=== PATIENT | female | born 1970 | race Caucasian/White ===

== ENCOUNTER 2020-10-16 08:14 | Outpatient (CLI) | payer BC, SELFPAY ==
--- NOTE | ~2020-10-16 | MM_ITS ---
EXAMINATION: MM screening paula BI w loan HISTORY: Screening mammogram TECHNIQUE: Craniocaudal and mediolateral oblique 3-D tomosynthesis images were obtained and synthetic 2-D images were generated. CAD analysis was submitted and interpreted. COMPARISON: 10/04/2019 bilateral digital screening mammogram 10/01/2018 right screening and left diagnostic digital mammogram and limited left breast ultrasound 04/27/2018, since 10/21/2017 diagnostic left digital mammogram 09/22/2017, 09/18/2016 bilateral digital screening mammogram examinations BREAST PARENCHYMAL COMPOSITION: There are scattered areas of fibroglandular density. FINDINGS: A biopsy marker is again noted in the upper outer quadrant left breast; history of prior be nign left breast biopsy. There is no evidence of suspicious mass, calcification, or architectural dis tortion to suggest malignancy in either breast. There has been no suspicious interval change. IMPRESSION: 1. No mammographic evidence of malignancy. 2. Recommend routine screening mammography in one year. BI-RADS Category 1: Negative Reviewed, dictated and finalized at location A. DING EQUIPMENT OPERATOR
== END 2020-10-16 08:15 | disposition home or self-care (01) ==
LOC: ANHIMG 08:16
PROVIDERS: PCP Family Medicine; Visit Provider Obstetrics & Gynecology
DX: Z12.31 Encounter for screening mammogram for malignant neoplasm of breast (principal)
CPT/HCPCS: 77063; 77067

== ENCOUNTER 2021-04-24 07:10 | Outpatient (CLI) | payer BC, SELFPAY ==
[2021-04-24 08:17] LABS: Basophils Absolute Auto 0.1 K/mm3 (0.0-0.1); Basophils Percent Auto 0.4 % (0.2-1.2); Eosinophils Absolute Auto 0.2 K/mm3 (0-0.3); Eosinophils Percent Auto 1.9 % (0-4.4); Hematocrit 42.9 % (37.0-47.0); Hemoglobin 13.5 g/dL (12.0-15.0); Immature Granulocyte Absolute 0.05 K/mm3 (0.00-0.031); Immature Granulocyte Percent A 0.4 % (0-0.5); Lymphocytes Absolute Auto 2.77 K/mm3 (0.9-3.2); Lymphocytes Percent Auto 23.3 % (18.3-44.2); Mean Corpuscular HGB Conc 31.5 g/dl (32-36); Mean Corpuscular Hemoglobin 26.7 pg (26-34); Mean Corpuscular Volume 84.8 fl (80-100); Mean Platelet Volume 9.9 fl (7.4-10.4); Monocytes Absolute Auto 0.9 K/mm3 (0.1-0.6); Monocytes Percent Auto 7.3 % (2.6-8.5); Neutrophils Absolute Auto 7.9 K/mm3 (1.3-6.7); Neutrophils Percent Auto 66.7 % (45.5-73.1); Platelet Count Result 355 k/mm3 (150-375); Red Blood Count 5.06 M/mm3 (4.2-5.4); Red Cell Distribution Width 14.2 % (11.5-14.5); White Blood Count 11.9 K/mm3 (4.5-10.0)
[2021-04-24 08:26] LABS: Alanine Aminotransferase 80 U/L (4-35); Alkaline Phosphatase 60 U/L (38-126); Anion Gap 9 mmol/L (8-16); Aspartate Amino Transferase 41 U/L (14-36); Bilirubin,Total 0.4 mg/dL (0.2-1.3); Blood Urea Nitrogen 11 mg/dL (7-17); Calcium 8.7 mg/dL (8.4-10.2); Carbon Dioxide 23 mmol/L (22-30); Chloride 108 mmol/L (98-107); Cholesterol 115 mg/dL (0-200); Estimated Glomerular Filt Rate > 60; Glucose 104 mg/dL (65-105); HDL Direct 45 mg/dL; Potassium 3.9 mmol/L (3.4-5.0); Sodium 140 mmol/L (137-145); Triglycerides 90 mg/dL (<150)
[2021-04-24 08:34] LABS: Add Urine Microscopic? YES; Appearance Urine Cloudy (Clear); Bilirubin Urine Negative (Negative); Blood Urine 1+ (Negative); Color Urine Yellow (Yellow); Glucose Urine UA Negative (Negative); Ketones Urine Negative (Negative); Leukocyte Esterase Ur 1+ LEU/UL (NEGATIVE); Mucus Urine Moderate /lpf; Nitrate Urine Negative (Negative); Protein Urine Negative (Negative); RBC Urine 0-2 /hpf (0-2); Specific Grav Ur 1.023 (1.001-1.035); Squamous Epithelial Cell Urine Many /hpf (Few); Urobilinogen Urine Negative mg/dL (<2.0)
[2021-04-24 08:37] LABS: LDL Cholesterol Direct 54 mg/dL
[2021-04-24 09:20] LABS: Hemoglobin A1C 6.1 % (<5.7)
== END 2021-04-24 07:11 | disposition home or self-care (01) ==
PROVIDERS: PCP Family Medicine; Visit Provider Physician Assistant
DX: Z00.00 Encounter for general adult medical examination without abnormal findings (principal); R74.8 Abnormal levels of other serum enzymes; I10 Essential (primary) hypertension; K76.0 Fatty (change of) liver, not elsewhere classified; R73.01 Impaired fasting glucose; E28.2 Polycystic ovarian syndrome
CPT/HCPCS: 36415; 80053; 80061; 81001; 83036; 84443; 85025

== ENCOUNTER 2021-11-08 15:38 | Outpatient (CLI) | payer OTHER, SELFPAY ==
--- NOTE | ~2021-11-08 | MM_ITS ---
EXAMINATION: MM screening paula BI w loan HISTORY: Screening TECHNIQUE: Craniocaudal and mediolateral oblique 3-D tomosynthesis images were obtained and synthetic 2-D images were generated. CAD analysis was submitted and interpreted. COMPARISON: Comparison to multiple prior studies sequentially, with oldest reviewed study dated 09/27. BREAST PARENCHYMAL COMPOSITION: Breast composed of scattered areas of fibroglandular density FINDINGS: There are developing bilateral breast asymmetries in the upper outer quadrants of both jacob sts. There are stable benign left breast calcifications. IMPRESSION: 1. Developing bilateral breast asymmetries. 2. Additional mammographic views and possible breast ultrasound are recommended. BI-RADS Category 0: Incomplete: Needs additional imaging evaluation. Reviewed, dictated and finalized at location A. RETE GUN OPERATOR IMPRESSION: 1. Developing bilateral breast asymmetries. 2. Additional mammographic views and possible breast ultrasound are recommended . BI-RADS Category 0: Incomplete: Needs additional imaging evaluation.
== END 2021-11-08 15:39 | disposition home or self-care (01) ==
LOC: ANHIMG 15:42
PROVIDERS: PCP Family Medicine; Visit Provider Obstetrics & Gynecology
DX: Z12.31 Encounter for screening mammogram for malignant neoplasm of breast (principal); R92.8 Other abnormal and inconclusive findings on diagnostic imaging of breast
CPT/HCPCS: 77063; 77067

== ENCOUNTER 2021-11-26 13:41 | Outpatient (CLI) | payer OTHER, SELFPAY ==
--- NOTE | ~2021-11-26 | MMUS_ITS ---
EXAMINATION: MM diagnostic paula BI w loan, US breast BI limited HISTORY: Bilateral breast asymmetries TECHNIQUE: Additional 3-D tomosynthesis images of the breasts were performed and synthetic 2-D images were generated. CAD analysis was submitted and interpreted. High resolution limited bilateral breast ultrasound was performed. COMPARISON: Comparison to multiple prior studies sequentially, with oldest reviewed study dated 11/2017. BREAST PARENCHYMAL COMPOSITION: Breast composed of scattered areas of fibroglandular density FINDINGS: MAMMOGRAPHIC FINDINGS: Bilateral asymmetries in the outer aspect of both breasts are less dense with spot compression views. There are no suspicious calcifications or architectural distortion. ULTRASOUND: Limited right breast ultrasound: There are multiple bilateral cysts and mildly prominent ducts in bot h breasts. No suspicious masses to suggest malignancy. IMPRESSION: 1. No evidence for malignancy in either breast. Benign findings. 2. Routine yearly screening mammogram and regular clinical breast examination are recommended. BI-RADS Category 2: Benign finding(s). Reviewed, dictated and finalized at location A. SETTER IMPRESSION: 1. No evidence for malignancy in either breast. Benign findings. 2. Routine yearly screening mammogram and regular clinical breast examination a re recommended. BI-RADS Category 2: Benign finding(s).
== END 2021-11-26 13:42 | disposition home or self-care (01) ==
LOC: ANHIMG 13:42
PROVIDERS: PCP Family Medicine; Visit Provider Obstetrics & Gynecology
DX: R92.8 Other abnormal and inconclusive findings on diagnostic imaging of breast (principal)
CPT/HCPCS: 76642; 77062; 77066; G0279

== ENCOUNTER 2023-01-30 09:39 | Outpatient (CLI) | payer OTHER, SELFPAY ==
--- NOTE | ~2023-01-30 | MM_ITS ---
EXAMINATION: MM screening paula BI w loan HISTORY: Screening TECHNIQUE: Craniocaudal and mediolateral oblique 3-D tomosynthesis images were obtained and synthetic 2-D images were generated. CAD analysis was submitted and interpreted. COMPARISON: Comparison to multiple prior studies sequentially, with oldest reviewed study dated 03/2018. BREAST PARENCHYMAL COMPOSITION: There are scattered areas of fibroglandular density. FINDINGS: There is a new focal asymmetry in the outer aspect of the right breast on CC view. The left breast is stable without evidence for malignancy. IMPRESSION: 1. New right breast asymmetry. 2. Additional mammographic views and possible breast ultrasound are recommended. BI-RADS Category 0: Incomplete: Needs additional imaging evaluation. Reviewed, dictated and finalized at location A. IMPRESSION: 1. New right breast asymmetry. 2. Additional mammographic views and possible breast ultrasound are recommended . BI-RADS Category 0: Incomplete: Needs additional imaging evaluation.
== END 2023-01-30 09:40 | disposition home or self-care (01) ==
LOC: ANHIMG 09:40
PROVIDERS: PCP Family Medicine; Visit Provider Obstetrics & Gynecology
DX: Z12.31 Encounter for screening mammogram for malignant neoplasm of breast (principal); R92.8 Other abnormal and inconclusive findings on diagnostic imaging of breast
CPT/HCPCS: 77063; 77067

== ENCOUNTER 2023-03-20 12:39 | Outpatient (CLI) | payer OTHER, SELFPAY ==
--- NOTE | ~2023-03-20 | MM_ITS ---
EXAMINATION: MM diagnostic paula RT w loan HISTORY: Right breast asymmetry on screening mammogram TECHNIQUE: Additional 3-D tomosynthesis images of the right breast were performed and synthetic 2-D i mages were generated. CAD analysis was submitted and interpreted. COMPARISON: 01/30/2023, 11/26/2021, 11/08/2021, 10/16/2020 FINDINGS: An asymmetry is present in the subareolar aspect of the right breast. There is a return to baseline fibroglandular appearance with spot compression of the right breast in the area questioned o n screening mammogram. No suspicious calcification or architectural distortion are identified. IMPRESSION: 1. Subareolar asymmetry of the right breast. Patient did not wish to undergo ultrasound at this time. 2. Further evaluation with limited right breast ultrasound is recommended. BI-RADS Category 0: Incomplete: Needs additional imaging evaluation. Reviewed, dictated and finalized at location A. IMPRESSION: 1. Subareolar asymmetry of the right breast. Patient did not wish to undergo ul trasound at this time. 2. Further evaluation with limited right breast ultrasound is recommended. BI-RADS Category 0: Incomplete: Needs additional imaging evaluation.
== END 2023-03-20 12:40 | disposition home or self-care (01) ==
PROVIDERS: PCP Family Medicine; Visit Provider Obstetrics & Gynecology
DX: R92.8 Other abnormal and inconclusive findings on diagnostic imaging of breast (principal)
CPT/HCPCS: 77061; 77065; G0279

== ENCOUNTER 2023-04-04 10:16 | Outpatient (CLI) | payer OTHER, SELFPAY ==
--- NOTE | ~2023-04-04 | US_ITS ---
US breast RT limited 04/04/2023 10:40 Indication: Follow-up right breast asymmetry Procedure: Limited right breast ultrasound Comparison: Comparison to multiple prior studies sequentially, with oldest reviewed study dated 11/26. Findings: At 10:00, 5 cm from the nipple, there is a 3 mm cyst. At 8:00, 1 cm from the nipple, there is an oval circumscribed hypoechoic mass with low level internal echoes and a single punctate echogen ic foci, most likely benign. There is parallel orientation, circumscribed margins, no posterior acous tic shadowing and no internal vascularity. Impression: 1: Probable benign right breast mass at 8:00, 1 cm from the nipple. BI-RADS CATEGORY 3-PROBABLY BENIGN FINDING RECOMMENDATION: 6 month follow-up Limited right breast ultrasound recommended. Reviewed, dictated and finalized at location A. Impression: 1: Probable benign right breast mass at 8:00, 1 cm from the nipple. BI-RADS CATEGORY 3-PROBABLY BENIGN FINDING RECOMMENDATION: 6 month follow-up Limited right breast ultrasound recommended.
== END 2023-04-04 10:17 | disposition home or self-care (01) ==
PROVIDERS: PCP Family Medicine; Visit Provider Obstetrics & Gynecology
DX: R92.8 Other abnormal and inconclusive findings on diagnostic imaging of breast (principal)
CPT/HCPCS: 76642

== ENCOUNTER 2024-05-05 07:43 | Day surgery (SDC) | payer OTHER, SELFPAY ==
[2024-03-25 13:53] VITALS: BMI 31.5
--- NOTE | 2024-05-04 13:49 | WPDANESEPPF ---
Anes - Initial Pre Proc Eval Procedure: Operation Date: 05/05/24 10:30 Proposed Procedures p Screening Colonoscopy - Inder Estrada MD Date/Time: 05/04/24 13:49 Surgeon: Idner Estrada MD Pre Op Diagnosis: Neoplasm Screening Patient Data Age: 53 Gender: F Height: 1.55 m Weight: 85 kg Allergies Allergy/AdvReac Type Severity Reaction Status Date / Time Penicillins Allergy Unknown Anaphylactic Verified 05/05/24 09:26 Shock Home Medications Medication Instructions Recorded Confirmed Type calcium carbonate 500 mg PO DAILY #30 caps 03/01/20 05/05/24 Rx cholecalciferol (vitamin D3) 125 125 mcg PO DAILY #30 caps 03/01/20 05/05/24 Rx mcg (5,000 unit) capsule loratadine 10 mg tablet (Claritin) 10 mg PO DAILY PRN allergic 06/12/23 05/05/24 Rx symptoms #90 tabs spironolactone 100 mg tablet 50 mg PO BID #90 tabs 04/02/24 05/05/24 Rx metformin 850 mg tablet 850 mg PO BID #180 tabs 04/28/24 Rx Patient hx anesthesia problems: none Family hx anesthesia problems: none Results Review: All pre-operative results and documents have been reviewed as part of the pre-operative evaluation. [facility] Past Medical History Medical History (Updated 05/05/24 @ 09:47 by Inder Estrada MD) Chronic GERD Crepitus of joint of right knee Elevated liver enzymes Wellness examination Family History Family History Mother Patient's mother is in good health Hypertension Family history of cardiovascular disease Cerebrovascular accident Sibling Patient's sister is in good health Family history of malignant neoplasm of breast in first degree relative Social History Social History Smoking status: Never smoker Second hand tobacco smoke exposure: No Alcohol intake: current Drinks per week: 7 Substance use: never Substance use type: does not use Living arrangements: with family Occupation/Education: occupation Gender identity (if verbalized by the patient): Female Anes - Eval Final PreProcedure Day of Procedure 05/04/24 13:49 Patient weight: overweight Heart: regular rate and rhythm Lungs: clear to auscultation Airway: Mallampati scale class II Neurological: alert and oriented Last oral intake: >/= 8 hours ASA classification: II Emergent: no Anesthetic plan: proceed Anesthesia type and monitoring: general GIVS and standard monitoring Results Review: All pre-operative results and documents have been reviewed as part of the pre-operative evaluation. Informed Consent: The patient's anesthetic plan and its attendant risks and benefits were discussed with the patient/family/POA. Questions were solicited and answers provided to the satisfaction of the patient/family/POA.
[2024-05-05 09:34] VITALS: BP 130/89; PULSE 94; RESP 18; TEMP 37.7; O2SAT 98; BMI 46.7
--- NOTE | 2024-05-05 09:46 | PM.HPGS ---
History of Present Illness History of Present Illness Consent: Risks, benefits, and alternatives have been discussed and questions answered. Patient agrees to proceed with procedure. Chief complaint: Neoplasm Screening Narrative: Brittany Roman is a 53 year old female presents for screening colonoscopy. Patient's current weight appetite is are normal. She denies abdominal pain. Patient has had no bleeding. Family history noncontributory. Review of Systems Review of Systems: All systems reviewed & are unremarkable except as noted in HPI and below PMFSH Past Medical History Medical History (Updated 05/05/24 @ 09:47 by Inder Estrada MD) Chronic GERD Crepitus of joint of right knee Elevated liver enzymes Wellness examination Family History Family History Mother Patient's mother is in good health Hypertension Family history of cardiovascular disease Cerebrovascular accident Sibling Patient's sister is in good health Family history of malignant neoplasm of breast in first degree relative Social History Social History Smoking status: Never smoker Second hand tobacco smoke exposure: No Alcohol intake: current Drinks per week: 7 Substance use: never Substance use type: does not use Living arrangements: with family Occupation/Education: occupation Gender identity (if verbalized by the patient): Female Meds Home Medications and Allergies Home Medications Medication Instructions Recorded Confirmed Type calcium carbonate 500 mg PO DAILY #30 caps 03/01/20 05/05/24 Rx cholecalciferol (vitamin D3) 125 125 mcg PO DAILY #30 caps 03/01/20 05/05/24 Rx mcg (5,000 unit) capsule loratadine 10 mg tablet (Claritin) 10 mg PO DAILY PRN allergic 06/12/23 05/05/24 Rx symptoms #90 tabs spironolactone 100 mg tablet 50 mg PO BID #90 tabs 04/02/24 05/05/24 Rx metformin 850 mg tablet 850 mg PO BID #180 tabs 04/28/24 Rx Allergies Allergy/AdvReac Type Severity Reaction Status Date / Time Penicillins Allergy Unknown Anaphylactic Verified 05/05/24 09:26 Shock Vital Signs Vital Signs - 24 hr 05/05/24 09:34 Temperature 99.9 F H Pulse Rate 94 Respiratory Rate 18 Blood Pressure 130/89 Pulse Oximetry 98 Oxygen Delivery Room Air Exam Narrative: Physical exam reveals patient to be alert. Vital signs stable. HEENT exam is unremarkable. Patient is anicteric. Is are clear to auscultation and to percussion P is without murmur or extra sounds. Abdomen sounds are present soft nontender with no organomegaly. Digital external rectal exam normal. Assessment and Plan Assessment and plan (1) Screen for colon cancer: Code(s): Z12.11 - Encounter for screening for malignant neoplasm of colon Status: Acute Assessment and Plan: Presents today for neoplasia screening colonoscopy. Further recommendations may be given after endoscopy.
[2024-05-05 09:59] LABS: Glucose Point of Care 108 mg/dl (65-105)
[2024-05-05] MEDS: LACTATED RINGERS 1,000 ML 150 ML IV CONT (10:03)
[2024-05-05 10:30] VITALS: BMI 32.6
[2024-05-05 10:40] VITALS: BP 96/64; PULSE 77; RESP 15; O2SAT 97
[2024-05-05 10:50] VITALS: BP 102/80; PULSE 78; RESP 16; O2SAT 99
[2024-05-05 11:00] VITALS: BP 107/67; PULSE 68; RESP 16; O2SAT 100
--- NOTE | 2024-05-05 15:06 | WPDANESPN ---
Anes - Prog Note Post-Op Date/Time: 05/05/24 15:06 Cardiovascular status: normal Respiratory status: normal Airway patency: baseline Mental status: baseline Post-Op hydration status: normal Vital Signs: Last Vital Signs Temp 37.7 C H 05/05/24 09:34 Pulse 68 05/05/24 11:00 Resp 16 05/05/24 11:00 BP 107/67 05/05/24 11:00 Pulse Ox 100 05/05/24 11:00 O2 Del Method Room Air 05/05/24 11:00 Pain Score (VAS): 0 I/O: Intake & Output 05/04/24 05/05/24 05/05/24 23:59 07:59 15:59 Intake Total 600 Balance 600 05/05/24 09:54 POC Capillary Glucose 108 H Post-procedural complaints: none Patient Feedback: Patient satisfied with anesthetic care. Other Findings: Patient vital signs back to baseline. Patient denies nausea and vomiting. Patient's pain under control. Patient OK for discharge.
== END 2024-05-05 11:08 | disposition home or self-care (01) ==
PROVIDERS: PCP Family Medicine; Visit Provider Internal Medicine Gastroenterology
PROC: 0DJD8ZZ Inspection of Lower Intestinal Tract, Via Natural or Artificial Opening Endoscopic (ICD-10-PCS; CPT 45378; principal; 2024-05-05 10:30)
DX: Z12.11 Encounter for screening for malignant neoplasm of colon (principal)
CPT/HCPCS: 45378

== ENCOUNTER 2024-10-22 10:07 | Outpatient (CLI) | payer OTHER, SELFPAY ==
--- NOTE | ~2024-10-22 | MMUS_ITS ---
EXAMINATION: MM diagnostic paula BI w loan, US breast RT limited HISTORY: Prior asymmetry described on 01/30/2023. Patient presents for follow-up. TECHNIQUE: 3-D tomosynthesis images of bilateral breasts were performed in both the CC and MLO positi ons and synthetic 2-D images were generated. CAD analysis was submitted and interpreted. High resolut ion limited right breast ultrasound was performed. COMPARISON: 04/04/2023 and dating 10/04/2019 BREAST PARENCHYMAL COMPOSITION:Not Dense. There are scattered areas of fibroglandular density. FINDINGS: MAMMOGRAPHIC FINDINGS: Punctate calcifications detected bilaterally, stable and benign in appearance. Microclip within the left breast, consistent with patient's history. No discrete masses, architectural distortion, suspicious microcalcifications or significant asymmetry . ULTRASOUND: At the 8:00 position of the right breast approximately 1 cm from the nipple is a well-circumscribed a nechoic avascular focus measuring 3.6 x 1.9 x 2.7 mm, consistent with a simple cyst for which no furt her follow-up is needed. At the 10:00 position of the right breast approximately 5 cm from the nipple is a well-circumscribed focus of decreased echogenicity measuring 3.5 x 2.3 x 2.7 mm, sonographically consistent with an intr amammary lymph node for which no further follow-up is needed. Sonographic evaluation of the remainder of the right breast demonstrates benign fibroglandular elemen ts without a cystic or solid lesion of concern. IMPRESSION: No mammographic/tomographic or sonographic evidence to suggest the presence of malignancy. BI-RADS Category 2: Benign findings. Resumption of yearly mammography is recommended. Reviewed, dictated and finalized at location A. E AND WEIGH MACHINE ADJUSTER IMPRESSION: No mammographic/tomographic or sonographic evidence to suggest the presence of malignancy. BI-RADS Category 2: Benign findings. Resumption of yearly mammography is recommended.
== END 2024-10-22 10:08 | disposition home or self-care (01) ==
LOC: ANHIMG 10:08
PROVIDERS: PCP Family Medicine; Visit Provider Obstetrics & Gynecology
DX: R92.8 Other abnormal and inconclusive findings on diagnostic imaging of breast (principal)
CPT/HCPCS: 76642; 77062; 77066; G0279